=== PATIENT | female | born 1980 ===

== ENCOUNTER 2018-04-26 14:06 | Outpatient (CLI) | payer MEDICAID | END 2018-04-26 14:07 | disposition home or self-care (01) | LOC: C.LAB 14:06 | DX: N11.0 Nonobstructive reflux-associated chronic pyelonephritis (principal); I10 Essential (primary) hypertension; E75.6 Lipid storage disorder, unspecified; D69.9 Hemorrhagic condition, unspecified; Z13.1 Encounter for screening for diabetes mellitus; E55.9 Vitamin D deficiency, unspecified; M85.80 Other specified disorders of bone density and structure, unspecified site; R97.20 Elevated prostate specific antigen [PSA]; Z12.5 Encounter for screening for malignant neoplasm of prostate; R19.5 Other fecal abnormalities; Z01.83 Encounter for blood typing; A69.20 Lyme disease, unspecified; M12.9 Arthropathy, unspecified ==

== ENCOUNTER 2018-06-22 14:03 | Outpatient (CLI) | payer OTHER | END 2018-06-22 14:04 | disposition home or self-care (01) | LOC: C.LAB 14:03 | DX: Z13.29 Encounter for screening for other suspected endocrine disorder (principal) ==